=== PATIENT | male | born 1970 | race Caucasian/White ===

== ENCOUNTER 2022-03-18 10:56 | Emergency (ER) | payer OTHER ==
[2022-03-18] MEDS ORDERED: CLEOCIN300 MG PO (12:10)
== END 2022-03-18 12:24 | disposition home or self-care (01) ==
LOC: FER 10:56
DX: S61.210A Laceration without foreign body of right index finger without damage to nail, initial encounter (principal); S61.532A Puncture wound without foreign body of left wrist, initial encounter; S61.531A Puncture wound without foreign body of right wrist, initial encounter; Z88.0 Allergy status to penicillin; W54.0XXA Bitten by dog, initial encounter; Y92.009 Unspecified place in unspecified non-institutional (private) residence as the place of occurrence of the external cause